=== PATIENT | male | born 1950 | race Caucasian/White ===

== ENCOUNTER → 2016-11-27 | Outpatient (CLI) | payer OTHER | END | disposition home or self-care (01) | LOC: PCVCIMAG 10:47 | PROVIDERS: ATTEND Internal Medicine | DX: I65.23 Occlusion and stenosis of bilateral carotid arteries (principal); E78.5 Hyperlipidemia, unspecified; I10 Essential (primary) hypertension; I25.10 Atherosclerotic heart disease of native coronary artery without angina pectoris; I48.0 Paroxysmal atrial fibrillation; E11.9 Type 2 diabetes mellitus without complications | CPT/HCPCS: 80061; 93005; 93880 ==

== ENCOUNTER → 2018-12-10 | Outpatient (CLI) | payer OTHER ==
--- NOTE | 2018-12-10 14:01 | PCVCIMAG ---
APPROVED REPORT Indications Stenosis Risk Factors Hypertension: Hyperlipidemia Doppler Spectral Velocity Analysis PSV / EDVPSV / EDV ECA (R) 86 / 18 cm/sECA (L) 345 / 59 cm/s dICA (R) 57 / 22 cm/sdICA (L) 74 / 35 cm/s Jeremy (R) 46 / 16 cm/smICA (L) 66 / 24 cm/s pICA (R) 95 / 22 cm/spICA (L) 49 / 20 cm/s Bulb (R) 55 / 17 cm/sBulb (L) 54 / 19 cm/s dCCA (R) 78 / 19 cm/sdCCA (L) 70 / 22 cm/s mCCA (R) 91 / 18 cm/smCCA (L) 74 / 26 cm/s Vert (R) 34 / 15 cm/sVert (L) 52 / 10 cm/s ICA/CCA 1.04ICA/CCA 1.00 Basic Measurements Blood Pressure: Pulses: Right Left RightLeft Brachial(Sitting) 112/[id number]/66mmHgTemporal Real Time B-Mode Imaging Vert. (R)AntegradeVert. (L)Antegrade Findings The right carotid bulb has moderate calcified plaque. The right proximal internal carotid artery shows <40% stenosis. The right common carotid artery shows <40% stenosis. The right external carotid artery shows no significant stenosis. The left carotid bulb has mild plaque. The left proximal internal carotid artery shows no significant stenosis. The left common carotid artery shows <40% stenosis. The left external carotid artery shows >90% stenosis. Conclusion 1. Right internal carotid artery stenosis (<40%) 2. Left internal carotid artery mild plaquing; widely patent carotid endarterectomy site 3. Bilateral common carotid artery stenoses (<40%) 4. Antegrade vertebral flow
== END | disposition home or self-care (01) ==
LOC: PCVCIMAG 13:00
PROVIDERS: ATTEND Internal Medicine
DX: I65.23 Occlusion and stenosis of bilateral carotid arteries (principal); E78.5 Hyperlipidemia, unspecified; E11.9 Type 2 diabetes mellitus without complications
CPT/HCPCS: 93880

== ENCOUNTER → 2019-03-25 | Outpatient (CLI) | payer OTHER ==
--- NOTE | 2019-03-25 13:11 | PCVCIMAG ---
APPROVED REPORT Study performed: 03/25/2019 11:19:24 EXAM: Comprehensive 2D, Doppler, and color-flow Echocardiogram Patient Location: Echo lab Status: routine BSA: 1.86 HR: 55 bpmBP: 138/80 mmHg Rhythm: Bradycardia Other Information Study Quality: Adequate Indications Abnormal ECG Syncope 2D Dimensions IVSd: 11.30 (7-11mm) LVDd: 42.51 mm PWd: 12.01 (7-11mm)Ascending Ao: 34.53 (22-36mm) LVDs: 27.75 (25-40mm) Left Atrium: 41.46 (27-40mm) Aortic Root: 31.31 mm LV Single Plane 4CH: 68.92 % LV Single Plane 2CH: 72.64 % Biplane EF: 71.1 % Volumes Left Atrial Volume (Systole) Single Plane 4CH: 70.84 mLSingle Plane 2CH: 74.26 mL LA ESV Index: 40.00 mL/m2 Aortic Valve AoV Peak Jose L.: 2.00 m/s AO Peak Gr.: 15.99 mmHgLVOT Max P.33 mmHg LVOT Max V: 1.51 m/s Mitral Valve E/A Ratio: 1.0 MV Decel. Time: 269.34 ms MV E Max Jose L.: 0.93 m/s MV A Jose L.: 0.89 m/s IVRT: 86.51 ms Pulmonary Valve PV Peak Jose L.: 0.93 m/sPV Peak Gr.: 3.45 mmHg Pulmonary Vein P Vein S: 0.42 m/sP Vein A: 0.36 m/s P Vein D: 0.47 m/sP Vein A Dur.: 166.1 msec P Vein S/D Ratio: 0.89 Tricuspid Valve TR Peak Jose L.: 2.59 m/s TR Peak Gr.: 26.75 mmHg TV Vmax: 0.57 m/s Left Ventricle The left ventricle is normal size. There is normal LV segmental wall motion. There is normal left ventricular wall thickness. Left ventricular systolic function is normal. The left ventricular ejection fraction is within the normal range. LVEF is 65%. The left ventricular diastolic function is normal. Right Ventricle The right ventricle is normal size. The right ventricular systolic function is normal. Atria Left atrium is mildly dilated. Right atrium is mildly dilated. Aortic Valve Mild aortic valve sclerosis. Mild aortic regurgitation. There is no aortic valvular stenosis. Mitral Valve The mitral valve is normal in structure. No mitral regurgitation. No evidence of mitral valve stenosis. Tricuspid Valve The tricuspid valve is normal in structure. Mild tricuspid regurgitation with PAP of 34 mmHg. Pulmonic Valve The pulmonary valve is normal in structure. There is no pulmonic valvular regurgitation. Great Vessels The aortic root is normal in size. IVC is normal in size and collapses >50% with inspiration. Pericardium There is no pericardial effusion. There is no pleural effusion. <Conclusion> Left ventricular systolic function is normal. There is normal LV segmental wall motion. LVEF is 65%. Both atria are mildly dilated. Mild aortic valve sclerosis. Mild aortic regurgitation, no stenosis. The mitral valve is normal in structure. No mitral regurgitation. Mild tricuspid regurgitation with pulmonary artery pressure of 34 mmHg. There is no pericardial effusion.
== END | disposition home or self-care (01) ==
LOC: PCVCIMAG 11:13
PROVIDERS: ATTEND Internal Medicine
DX: I08.2 Rheumatic disorders of both aortic and tricuspid valves (principal); I25.10 Atherosclerotic heart disease of native coronary artery without angina pectoris; I48.0 Paroxysmal atrial fibrillation; R55 Syncope and collapse; R94.31 Abnormal electrocardiogram [ECG] [EKG]
CPT/HCPCS: 93306

== ENCOUNTER → 2019-07-04 | Outpatient (CLI) | payer OTHER ==
[~2019-07-04] MED LIST: REGADENOSON 0.4 MG/5 ML DISP.SYRIN. IV ONE
--- NOTE | 2019-07-04 13:43 | PCVCIMAG ---
APPROVED REPORT Imaging Protocol: Rest Tc-99m/Stress Tc-99m 1 day Study performed: 07/04/2019 09:49:19 Indication: Atrial Fibrillation, CAD Patient Location: Out-Patient Stress Nurse: Daisy He RN, Annie Corea RN [place] Tech:Donna Aaron [facility] Ht: 5 ft 5 in Wt: 169 lbs BSA: 1.84 m2 HR: 101 bpm BP: 140/82 mmHg BMI: 28.1 Rhythm: Atrial Fibrillation with demand pacine Medical History Medical History: Hyperlipidemia, HTN, CAD, Current Smoker, CVD, Diabetes, ICD, Atrial Fibrillation Medications: Crestor, Tribinzor Allergies: No known drug allergies Cardiac Risk Factors: Age Previous Cardiac Procedures: 2002 PCI - LAD, PPM, ICD Pretest Chest Pain Characteristics: No chest pain Exercise History: Physically active Resting Data Rest SPECT myocardial perfusion imaging was performed in supine position 45 minutes following the intravenous injection of 9.7 mCi of Tc-99m Sestamibi. Time of rest injection: 929 Date: 07/04/2019 Administration Route: IV Administration Site: Right AC Pharmacologic Stress Pharmacologic stress test was performed by injecting Regadenoson 0.4 mg IV push over 10-15 seconds immediately followed by the intravenous injection of 35.2 mCi of Tc-99m Sestamibi. Time of stress injection: 1030 Date: 07/04/2019 Administration Route: IV Administration Site: Right AC Gated Stress SPECT was performed 45 minutes after stress injection. The images were gated to evaluate regional wall motion and calculate left ventricular ejection fraction. Stress Test Details Stress Test: Pharmacologic stress was paired with low level exercise. Reason for pharmacologic stress test: physical limitation, back issues. HRMax Heart Rate (APMHR): 150 bpm Resting HR: 101 bpmTarget HR (85% APMHR): 127 bpm Max HR Achieved: 148 bpm % of APMHR: 98 Recovery HR: 100 bpm BP Resting BP: 140/82 mmHg Max BP: 143/92 mmHg Recovery BP: 173/80 mmHg ECG Resting ECG: Atrial Fibrillation with demand pacing Stress ECG: Atrial Fibrillation with demand pacing, RVR ST Change: None Maximum ST Deviation: 0 mm Arrhythmia: PVC's Recovery ECG: Atrial Fibrillation with demand pacing Recovery ST Change: None Recovery ST Deviation: 0 mm Recovery Arrhythmia: None Clinical Reason for Termination: Completed protocol Stress Symptoms: Dyspnea, Leg heaviness Exercise duration: 4 min 00 sec Exercise capacity: 1.6 METs Symptoms resolved during recovery. Stress ECG Conclusion ECG: Non-ischemic Clinical: Non-ischemic Study Quality Study: Good Study Data Post stress, the left ventricular ejection was 80%%.. SSS: 0 SRS: 0 SDS: 0 TID = 0.92. Perfusion No evidence of stress induced ischemia or prior myocardial infarction. Wall Motion Normal left ventricular size and function with no regional wall motion abnormalities. Nuclear Conclusion No evidence of stress induced ischemia or prior myocardial infarction. Normal left ventricular size and function with no regional wall motion abnormalities. Post stress, the left ventricular ejection was 80%%. No change since prior study dated June 2015. Interpreted by: Eduardo Beaver MD Electronically Approved: 07/04/2019 13:26:17 <Conclusion> ECG: Non-ischemic Clinical: Non-ischemic
== END | disposition home or self-care (01) ==
LOC: PCVCIMAG 09:14
PROVIDERS: ATTEND Internal Medicine
DX: I48.0 Paroxysmal atrial fibrillation (principal); I25.10 Atherosclerotic heart disease of native coronary artery without angina pectoris; Z95.0 Presence of cardiac pacemaker
CPT/HCPCS: 78452; 93017; A9500; J2785